=== PATIENT | female | born 1980 | race Caucasian/White ===

== ENCOUNTER 2021-07-07 05:37 | Inpatient (IN) | payer BC ==
[2021-07-07] MEDS ORDERED: Scopolamine 1.5 MG Transdermal Patch TOP SCH (05:45)
[2021-07-07] MEDS ORDERED: Celecoxib 200 MG Cap PO ONE (05:45)
[2021-07-07] MEDS ORDERED: Acetaminophen 500 MG Tab PO ONE (05:45)
[2021-07-07] MEDS ORDERED: Dextrose 5%-Lactated Ringers 1,000 ML IV SCH ×2 (06:00→10:30)
[2021-07-07] MEDS ORDERED: cefOXitin 2 GM Vial ONE (06:32)
[2021-07-07] MEDS ORDERED: Ondansetron 4 MG/2 ML SDV ONE (06:47)
[2021-07-07] MEDS ORDERED: Propofol 200 MG/20 ML SDV ONE (06:47)
[2021-07-07] MEDS ORDERED: Neostigmine Methylsulfate 1 MG/ML 5 ML Syringe ONE (06:47)
[2021-07-07] MEDS ORDERED: Glycopyrrolate 0.2 MG/ML 5 ML MDV ONE (06:47)
[2021-07-07] MEDS ORDERED: Dexamethasone 4 MG/ML SDV ONE (06:47)
[2021-07-07] MEDS ORDERED: Rocuronium 50 MG/5 ML Vial ONE (06:47)
[2021-07-07] MEDS ORDERED: Succinylcholine 200 MG/10 ML MDV ONE (06:47)
[2021-07-07] MEDS ORDERED: fentaNYL 250 MCG/5 ML SDV ONE ×2 (06:48→07:22)
[2021-07-07] MEDS ORDERED: cefOXitin 2 GM in Sodium Chloride 0.9% 50 ML IV ONE (07:15)
[2021-07-07] MEDS ORDERED: Ketamine 18 MG in Sodium Chloride 0.9% 19.82 ML IV SCH (07:30)
[2021-07-07] MEDS ORDERED: Ketamine 500 MG/5 ML MDV IV SCH (07:30)
[2021-07-07] MEDS ORDERED: Ropivacaine 50 ML, dexAMETHasone 8 MG, EPINEPHrine 0.4 MG, Sodium Chloride 0.9% 27.6 ML NERVRT SCH ×4 (07:30)
[2021-07-07] MEDS ORDERED: Labetalol 20 MG/4 ML Syringe ONE (07:45)
[2021-07-07] MEDS ORDERED: Scopolamine 1.5 MG Transdermal Patch ONE (07:45)
[2021-07-07] MEDS ORDERED: Cyclobenzaprine 10 MG Tab PO PRN (10:28)
[2021-07-07] MEDS ORDERED: Albuterol/Ipratropium 3.0-0.5 MG/3 ML Neb Soln INH PRN (10:29)
[2021-07-07] MEDS ORDERED: traMADol 50 MG Tab PO PRN (11:00)
[2021-07-07] MEDS ORDERED: Labetalol 20 MG/4 ML Syringe IVPUSH PRN (11:00)
[2021-07-07] MEDS ORDERED: HYDROmorphone 0.5 MG/0.5 ML Syringe IVPUSH PRN (11:00)
[2021-07-07] MEDS ORDERED: Metoclopramide 10 MG/2 ML SDV IVPUSH PRN (11:00)
[2021-07-07] MEDS ORDERED: diphenhydrAMINE 50 MG/ML SDV IVPUSH PRN (11:00)
[2021-07-07] MEDS ORDERED: hydrOXYzine HCL 100 MG/2 ML SDV IM PRN (11:00)
[2021-07-07] MEDS ORDERED: Acetaminophen 500 MG Tab PO PRN (11:00)
[2021-07-07] MEDS ORDERED: HYDROmorphone 1 MG/ML Syringe IV PRN (11:00)
[2021-07-07] MEDS ORDERED: oxyCODONE 5 MG Tab PO PRN (11:00)
[2021-07-07] MEDS: Ondansetron 4 MG/2 ML SDV IVPUSH PRN (12:19)
[2021-07-07] MEDS ORDERED: Acetaminophen 500 MG Tab PO SCH (14:00)
[2021-07-07] MEDS ORDERED: Pantoprazole 40 MG Vial IVPUSH SCH (14:00)
[2021-07-07] MEDS: Spironolactone 25 MG Tab PO SCH (14:32)
[2021-07-07] MEDS: Losartan 50 MG Tab PO SCH (14:33)
[2021-07-07] MEDS: cefOXitin 2 GM in Sodium Chloride 0.9% 50 ML IV SCH ×2 (14:33→19:30)
[2021-07-07] MEDS ORDERED: MVI, Adult with Vitamin K 10 ML, Thiamine 200 MG, Zinc/Copper/Manganese/Selenium 1 ML i... IV SCH ×4 (16:00)
[2021-07-07] MEDS: Heparin Sodium 5,000 Units/ML Vial SUBCUT SCH (18:04)
[2021-07-07] MEDS: Acetaminophen Soln 650 MG/20.3 ML UD Cup PO SCH (21:41)
[2021-07-08] MEDS ORDERED: Iopamidol 612 MG/ML 50 ML SDV PO STA (01:30)
[2021-07-08] MEDS: cefOXitin 2 GM in Sodium Chloride 0.9% 50 ML IV SCH ×3 (01:33→13:35)
[2021-07-08] MEDS: Acetaminophen Soln 650 MG/20.3 ML UD Cup PO SCH ×2 (05:30→13:34)
[2021-07-08] MEDS: Heparin Sodium 5,000 Units/ML Vial SUBCUT SCH (05:30)
[2021-07-08] MEDS: Ondansetron 4 MG/2 ML SDV IVPUSH PRN (06:12)
[2021-07-08] MEDS ORDERED: Ondansetron 4 MG Tab.DIS PO PRN (06:52)
[2021-07-08] MEDS: Spironolactone 25 MG Tab PO SCH (08:21)
[2021-07-08] MEDS: Losartan 50 MG Tab PO SCH (08:23)
[2021-07-08] MEDS ORDERED: SCOPOLAMINE PATCH CHECK TOP SCH (09:00)
[2021-07-08] MEDS ORDERED: amLODIPine 5 MG Tab PO SCH (09:00)
[2021-07-08] MEDS ORDERED: Celecoxib 200 MG Cap PO SCH (09:00)
[2021-07-08] MEDS ORDERED: Cyanocobalamin (Vitamin B12) 1,000 MCG/ML SDV IM ONE (11:00)
[2021-07-08] MEDS ORDERED: Pantoprazole 40 MG Delayed-Release Granules 1 Packet PO SCH (11:30)
[2021-07-09] MEDS ORDERED: Cyanocobalamin (Vitamin B12) 1,000 MCG/ML SDV IM ONE (09:00)
== END 2021-07-08 15:09 | disposition home or self-care (01) | DRG 403 ==
LOC: JP.MS 05:37 → JP.SDS 05:37 → EDSTATUS 07:15 → JP.MS 09:35
PROVIDERS: ADMIT Surgery; ATTEND Surgery
PROC: 0DB64Z3 Excision of Stomach, Percutaneous Endoscopic Approach, Vertical (ICD-10-PCS; principal; 2021-07-07)
PROC: 0FB23ZX Excision of Left Lobe Liver, Percutaneous Approach, Diagnostic (ICD-10-PCS; 2021-07-07)
PROC: 0BUT4JZ Supplement Diaphragm with Synthetic Substitute, Percutaneous Endoscopic Approach (ICD-10-PCS; 2021-07-07)
PROC: 0JB63ZZ Excision of Chest Subcutaneous Tissue and Fascia, Percutaneous Approach (ICD-10-PCS; 2021-07-07)
PROC: 07B74ZZ Excision of Thorax Lymphatic, Percutaneous Endoscopic Approach (ICD-10-PCS; 2021-07-07)
DX: E66.01 Morbid (severe) obesity due to excess calories (principal); Z68.36 Body mass index [BMI] 36.0-36.9, adult; I10 Essential (primary) hypertension; E78.5 Hyperlipidemia, unspecified; L73.2 Hidradenitis suppurativa; R16.0 Hepatomegaly, not elsewhere classified; D17.1 Benign lipomatous neoplasm of skin and subcutaneous tissue of trunk; K44.9 Diaphragmatic hernia without obstruction or gangrene
CPT/HCPCS: 36415; 74240; 74240-26; 81025; 82947; 86850; 86900; 86901; 88305; 88307; 88313; A9270-GY; C1713; C1781; C9113; J0171; J0330; J0694; J1100; J1644; J2405; J2704; J2710; J2795; J3010; J3411; J3420; J3490; J7030; J7121; Q9967